=== PATIENT | male | born 1990 | race Caucasian/White ===

== ENCOUNTER 2021-02-27 19:37 | Emergency (ER) | payer BC, SELFPAY ==
[2021-02-27 19:38] VITALS: BP 160/94; PULSE 86; RESP 17; TEMP 35.9; O2SAT 97; BMI 38.9
[2021-02-27 19:41] VITALS: BP 160/94; PULSE 87; RESP 16
--- NOTE | 2021-02-27 20:00 | RAD_ITS ---
STUDY: X-RAY - RIGHT HAND REASON FOR EXAM: Male, 30 years old. Injury/Pain TECHNIQUE: 3 view(s) of the hand. COMPARISON: None. FINDINGS: Normal radiocarpal articulation. Normal distal radioulnar joint. Normal visualized carpal bones. Normal carpal articulations Normal carpometacarpal articulation of the thumb. Normal second through fifth carpometacarpal joints. Normal metacarpi. Normal metacarpophalangeal joint of the thumb. Normal interphalangeal joint of the thumb. Normal proximal and distal phalanges of the thumb. Normal metacarpophalangeal joints of the second through fifth fingers. Normal proximal and distal interphalangeal joints of the second through fifth fingers. Normal phalanges of the second through fifth fingers. No visualized fracture. The soft tissue structures are unremarkable. RAD/Hand Min 3 Views IMPRESSION: Normal x-ray examination of the hand. Electronically Signed: Anderson Sidhu MD at 20:49 EDT , Service support ,
--- NOTE | 2021-02-27 20:19 | ED.VISSUMM ---
- ER Visit Summary Date of Service: 02/27/21 Chief Complaint: Puncture wound right hand History of Present Illness: The patient is a 30 M who presents with a puncture wound to his right hand that occurred today. Patient was using a pick to take a hole. Patient states the end of the PICC handle was cracked and a piece of wood punctured his right hand in the webspace between his thumb and index finger. Patient does not think there is any foreign body in the wound. Patient describes the pain as aching. Patient states the pain is slightly worse with palpation. Patient denies any paresthesias or weakness. Patient states his last tetanus was less than 10 years ago. Physical Examination: Vital signs are stable. Patient is afebrile. Patient is in no acute distress. Skin is warm dry. There is a 0.5 cm laceration to the webspace of the right hand between the first and second digits. There is minimal bleeding. There are no foreign bodies visualized. There is mild gapping of the wound margins. Sensation was intact to light touch in all digits. Capillary refill was less than 2 seconds in all digits. Strength is 5/5 in the radial, median, and ulnar areas. Test Results: X-rays of the right and were obtained. There are [3] views. On my interpretation, there is no acute fracture. There is no dislocation. There is no soft tissue swelling. Radiologist also interpreted the x-rays and agrees. Emergency Department Course and Treatment: She was given a dose of Keflex here. Bulky dressing was applied. Patient was instructed to keep the wound clean and dry. Discussed with the patient that since the laceration is small and the risk of infection is high, I do not recommend sutures at this time. Patient is agreeable with this. Patient was given a prescription for Keflex. Patient was instructed to follow-up with his primary care physician in 5 to 7 days. Patient understood and was agreeable with the plan. All questions were answered. Disposition: Discharge home Impression: Puncture wound right hand This note was generated with [employer] dictation software. It may contain incorrect words, spelling, and punctuation that were not noted in review of the chart prior to signing ED Disposition - Plan for ED Patient: Disposition: Home or Assisted Living Diagnosis: Puncture wound of right hand Instructions: ED Puncture Wound (General) Prescriptions: Cephalexin [Keflex] 500 mg PO Q6 #40 capsule Transmission Status: Pending to [facility] [facility] Referrals: [facility] Doctor,Out of [NON-STAFF] - 5-7 Days
== END 2021-02-27 22:25 | disposition home or self-care (01) ==
PROVIDERS: Emergency Provider Emergency Medicine
DX: S61.431A Puncture wound without foreign body of right hand, initial encounter (principal); E66.9 Obesity, unspecified; F17.220 Nicotine dependence, chewing tobacco, uncomplicated; X58.XXXA Exposure to other specified factors, initial encounter; Y93.89 Activity, other specified; Y92.89 Other specified places as the place of occurrence of the external cause; Y99.8 Other external cause status
CPT/HCPCS: 73130; 99282; J7030

== ENCOUNTER 2024-01-22 18:45 | Emergency (ER) | payer BC, SELFPAY ==
[2024-01-22 18:46] VITALS: BP 156/94; PULSE 73; RESP 16; TEMP 36.6; O2SAT 99; BMI 38.4
--- NOTE | 2024-01-22 20:06 | CT_ITS ---
INDICATION: right flank pain EXAMINATION: CT ABDOMEN AND PELVIS WITHOUT CONTRAST - CT Abdomen And Pelvis W/O Contrast Injection TECHNIQUE: Helically acquired images were obtained of the abdomen and pelvis without oral or IV contrast. A radiation dose optimization technique was used for this scan. IV Contrast dosage and agent: None. Oral contrast: None. RADIATION DOSAGE (If Supplied By Facility): CTDIvol = ( 21.13 ) mGy, DLP = ( 1187.93 ) mGycm COMPARISON: No relevant prior comparison study available FINDINGS: LOWER CHEST: Lung bases are clear. No cardiomegaly or pericardial effusion. LIVER: The liver is normal in size, shape, and attenuation. No focal mass. GALLBLADDER AND BILIARY TREE: The gallbladder is normally distended. No gallstones. No gallbladder wall thickening or edema. No intra- or extrahepatic biliary ductal dilation. PANCREAS: No focal cystic or solid mass. SPLEEN: Normal size without focal cystic or solid mass. ADRENAL GLANDS: No nodules. KIDNEYS AND URETERS: Normal renal size and position. Punctate calculus in the right ureterovesical junction with minimal upstream hydroureter and no significant hydronephrosis. PERITONEUM: No ascites or free air. No other fluid collection. BOWEL: The stomach is unremarkable. Normal caliber small bowel. No obstruction. No colonic wall thickening or inflammatory changes. Normal appendix. LYMPH NODES: No enlarged mesenteric or retroperitoneal lymph nodes. VESSELS: Aorta is non-dilated. URINARY BLADDER: Unremarkable. REPRODUCTIVE ORGANS: No pelvic masses. ABDOMINAL WALL: No discrete abdominal or pelvic wall hernia. BONES: No acute or suspicious osseous abnormality. CT/Abdomen/Pelvis without Cont IMPRESSION: Punctate calculus in the distal RIGHT ureter/ureterovesical junction without significant hydronephrosis. This stone will imminently pass into the bladder Electronically Signed: Srinath Bullock MD at 21:19 EST Reading Location ID and State: [facility] Tel , Service support ,
--- NOTE | 2024-01-22 20:07 | EDS_ITS ---
HPI History of Present Illness Chief Complaint: Abd Pain Informant: patient Onset/Context/Timing Onset: Days Timing: Intermittent Narrative Narrative: Patient presents secondary to intermittent right upper quadrant pain. He states Sunday evening just before going to bed he got sudden sharp pain in the lateral portion of the right upper quadrant that wraps down towards the testicle. He states it was very brief and subsided. Yesterday he felt well. Tonight he was at a restaurant and had ordered dinner but not yet eaten. He got sudden recurrent sharp pain to the lateral right upper quadrant, became nauseated and sweaty. Pain seems to be improved at this time. Patient denies history of kidney stones, however does have family history in both his father and his daughter. [facility] Medical History (Updated 01/22/24 @ 21:[address] Joellen Hernández MD) Depression Home Medications cephalexin 500 mg capsule 500 mg PO Q6 #40 CAPSULES 02/27/21 [Rx Last Taken Unknown] Allergy/AdvReac Type Severity Reaction Status Date / Time No Known Allergies Allergy Verified 01/22/24 18:47 Social History (Updated 01/22/24 @ 20:22 by Izzy Alejandro) household members: spouse and children housing: house Smoking Status: Current some day smoker tobacco type: smokeless tobacco ROS ROS ED Constitutional Constitutional ED: Denies chills or fever(s) Eyes Eyes: Denies discharge from eye(s) ENT ENT ED: Denies discharge from eye(s), rhinorrhea or sore throat Cardiovascular Cardiovascular: Denies chest pain or palpitations Respiratory/Chest Respiratory/Chest: Denies cough or dyspnea Gastrointestinal Gastrointestinal: Reports abdominal pain and nausea; Denies diarrhea or vomiting Genitourinary Genitourinary ED: Denies dysuria or hematuria Musculoskeletal Musculoskeletal: Denies back pain or extremity pain Integumentary Denies Abrasions or rash Neurologic Neurologic: Denies headache(s) or weakness Psychiatric Psychiatric: Denies anxiety or depression Allergic/Immunologic Allergic/Immunologic ED: Denies lip swelling or urticaria EXAM Physical Exam Const Vital Signs: 01/22/24 18:46 Temperature 97.8 F Temperature Source Temporal Pulse Rate 73 Respiratory Rate 16 Blood Pressure 156/94 H Blood Pressure Mean 114 Pulse Ox 99 Oxygen Delivery Method Room Air Positive well nourished and well developed General Appearance ED: well developed HEENT Reports moist mucous membranes Eyes EOMs intact bilaterally Chest Wall inspection of chest normal and palpation of chest normal Resp normal respiratory effort and clear to auscultation bilaterally Cardio regular rate and regular rhythm GI non-tender Auscultation: hypoactive bowel sounds Palpation: soft Back/Spine no CVA tenderness Extremity normal to inspection Neuro oriented x3 and no sensory deficits noted Motor Exam: strength 5/5 throughout Psych mental status grossly normal Skin no rashes or lesions noted MDM MDM MDM Narrative Medical decision making narrative: IV line established. Labwork obtained to evaluate for leukocytosis, anemia, and electrolyte derangement. Patient given Toradol and IV fluids. Urinalysis obtained to evaluate for infection/hematuria. CT flank obtained to evaluate for kidney stone versus gallstones versus appendicitis. History & Record Review Discussion w/independent historian: Patient Lab Data Attestation: I reviewed the patient's lab results. Labs: Laboratory Results - last 24 hr 01/22/24 01/22/24 20:20 20:23 WBC 9.9 RBC 5.38 Hgb 15.4 Hct 47.6 MCV 88.5 MCH 28.6 MCHC 32.4 RDW Std Deviation 41.8 RDW Coeff of Osvaldo 13.0 Plt Count 253 MPV 9.3 Immature Gran % (Auto) 1.000 H Neut % (Auto) 55.1 Lymph % (Auto) 32.3 Nye % (Auto) 6.8 Eos % (Auto) 4.1 Baso % (Auto) 0.7 Absolute Neuts (auto) 5.4 Absolute Lymphs (auto) 3.18 Nucleated RBC % 0 Sodium 140 Potassium 3.9 Chloride 108 H Carbon Dioxide 28.0 Anion Gap 4 L BUN 18 Creatinine 1.04 Estim Creat Clear Calc 134.51 Est GFR (MDRD) Af Amer 107 Est GFR (MDRD) Non-Af 88 BUN/Creatinine Ratio 17.3 Glucose 96 Calcium 9.7 Total Bilirubin 0.70 Direct Bilirubin 0.18 AST 14 L ALT 29 Alkaline Phosphatase 102 Total Protein 7.4 Albumin 4.1 Globulin 3.3 Lipase 26 Urine Color Yellow Urine Clarity Clear Urine pH 6.5 Ur Specific [place] 1.020 Urine Protein 15 H Urine Glucose (UA) Normal Urine Ketones Negative Urine Occult Blood 150 H Urine Nitrite Negative Urine Bilirubin Negative Urine Urobilinogen Normal Ur Leukocyte Esterase Negative Urine RBC 10-25 SEEN Urine WBC 0 SEEN Ur Squamous Epith Cells 0 SEEN Urine Bacteria RARE Urine Mucus RARE Radiography Diagnostic Testing: Clinical Impression(s) from Imaging Studies Abdomen/Pelvis CT 01/22/24 20:06 IMPRESSION: Punctate calculus in the distal RIGHT ureter/ureterovesical junction without significant hydronephrosis. This stone will imminently pass into the bladder Electronically Signed: Srinath Bullock MD at 21:19 EST Reading Location ID and State: [facility] / [place] Tel , Service support , Treatment and Re-Evaluation :: Patient was ordered a dose of Toradol for pain but declined. He has not had any recurrent symptoms while in the emergency room. CBC was normal white count at 9.9 with a hemoglobin of 15.4. Chemistry studies unremarkable. LFTs and lipase normal. Urinalysis does show 10-25 RBCs with no evidence of infection. CT scan of the abdomen pelvis reveals a punctate calculus in the distal right ureter at the UVJ without significant hydronephrosis. Test results discussed with the patient. He will take ibuprofen if needed for pain. Return instructions given. Discharge Plan Triage Chief Complaint: Abd Pain ED Provider: Joellen Hernández Dx/Rx/DC Orders Clinical Impression: Ureterolithiasis Instructions: ED Kidney Stone with Pain Prescriptions: No Action cephalexin 500 MG capsule 500 mg PO Q6 Qty: 40 0RF Primary Care Provider: KERWIN ODELL Referrals: KERWIN ODELL [Other] Dragan Parkinson MD [Med Staff - Active Staff] - As Needed Disposition Disposition: Home, Self Care
[2024-01-22 20:26] LABS: Absolute Lymphocyte Count 3.18 X10^3/uL (0.83-4.51); Absolute Neutrophil Count 5.4 X10^3/uL (2.0-7.7); Basophil# 0.07 X10^3/uL; Basophil% 0.7 % (0-1); Eosinophils% 4.1 % (0-5); Hematocrit 47.6 % (40-54); Hemoglobin 15.4 g/dL (13.0-16.5); Lymphocyte # 3.18 X10^3/ul (0.83-4.51); Lymphocyte % 32.3 % (19-41); Mean Corp Hgb Conc 32.4 g/dL (32-36); Mean Corpuscular Hgb 28.6 pg (27.0-32.0); Mean Corpuscular Volume 88.5 fL (80-94); Mean Platelet Vol. 9.3 fl (6.2-12.0); Monocyte# 0.67 X10^3/uL; Monocyte% 6.8 % (0-10); NRBC Flagged by Analyzer 0 % (0-5); Neutrophil # 5.44 X10^3/uL (2.7-7.7); Neutrophil % 55.1 % (47-70); Platelet Count 253 K/mm3 (150-450); RBC Distribution Width SD 41.8 fl (35.1-43.9); Red Blood Count 5.38 M/mm3 (4.6-6.2); White Blood Count 9.9 K/mm3 (4.4-11.0)
[2024-01-22 20:29] LABS: Squamous Epithelial Cells - UA 0 SEEN /hpf (0-5); White Blood Cells 0 SEEN /hpf (0-5)
[2024-01-22 20:42] LABS: AST(SGOT) 14 U/L (15-37); Alanine Aminotransfer ALT/SGPT 29 U/L (16-61); Albumin, Serum 4.1 g/dL (3.2-5.0); Alkaline Phosphatase 102 U/L (45-117); Anion Gap 4 (5-15); BUN 18 mg/dL (7-18); BUN/Creat Ratio 17.3 RATIO (10-20); Bilirubin, Direct 0.18 mg/dL (0.00-0.30); Calcium,Total 9.7 mg/dL (8.5-10.1); Chloride 108 mmol/L (98-107); Creatinine, Serum 1.04 mg/dL (0.70-1.30); EST Glomerular Filtration Rate 88 mL/min (>60); Est Glom Filt Rate - Afr Amer 107 mL/min (>60); Estimated Creatinine Clearance 134.51 ml/min; Globulin 3.3 g/dL (2.2-4.2); Glucose 96 mg/dL (74-106); Lipase 26 U/L (13-75); Potassium 3.9 mmol/L (3.5-5.1); Protein, Total 7.4 g/dL (6.4-8.2); Sodium Level 140 mmol/L (136-145)
[2024-01-22 20:44] LABS: Color, Urine Yellow (Yellow); Glucose, Dipstick Normal (Normal); Ketone-Dipstick Negative (Negative); Leukocyte Esterase-Dipstick Negative /ul (Negative); Nitrite-Dipstick Negative (Negative); Occult Blood-Urine 150 /ul (Negative); Protein-Dipstick 15 mg/dl (Negative); Urine Bilirubin Dipstick Negative (Negative); Urine Clarity Clear (Clear); Urine Urobilinogen Normal (Normal); Urine pH 6.5 (5.0 - 8.0)
[2024-01-22 20:49] LABS: Bacteria RARE /hpf (None Seen); Red Blood Cells-Urine 10-25 SEEN /hpf (0-5)
[2024-01-22 20:50] LABS: Mucous, Urine RARE /hpf (<or=2+)
== END 2024-01-22 22:01 | disposition home or self-care (01) ==
PROVIDERS: Emergency Provider Emergency Medicine; Visit Provider Emergency Medicine
DX: N20.1 Calculus of ureter (principal); F17.220 Nicotine dependence, chewing tobacco, uncomplicated
CPT/HCPCS: 74176; 80048; 80076; 81001; 83690; 85025; 99282; A4216

== ENCOUNTER → 2024-10-01 | Outpatient (CLI) | payer BC, SELFPAY | END | disposition home or self-care (01) | LOC: PSN 13:39 | PROVIDERS: PCP Student in an Organized Health Care Education/Training Program; Referring Provider Student in an Organized Health Care Education/Training Program; Visit Provider Student in an Organized Health Care Education/Training Program | DX: R20.0 Anesthesia of skin (principal) | CPT/HCPCS: 95886; 95912 ==